=== PATIENT | male | born 1995 | race Caucasian/White ===

== ENCOUNTER 2017-07-27 09:50 | Emergency (ER) | payer OTHER, SELFPAY ==
[2017-07-27 09:51] VITALS: BP 140/90; PULSE 108; RESP 16; TEMP 36.2; O2SAT 96; BMI 19.6
--- NOTE | 2017-07-27 10:33 | ED.VISSUMM ---
- ER Visit Summary Date of Service: 07/27/17 Chief Complaint: Depressed History of Present Illness: The patient is a 21 M who states that he is depressed. This is been ongoing for the past month. He states at times he also feels anxious. He does not know why. He has not had suicidal thoughts. He feels restless when he tries to sleep at night. He has taken Benadryl to help with this. His mother is concerned about him. She hints that he may be using drugs but the patient denies any current use but states he does have a history. He admits to smoking tobacco. Physical Examination: Vital signs reviewed. HEENT exam unremarkable. Heart is regular rate and rhythm without murmurs. Lungs are clear to auscultation. Abdomen is soft and nontender. Extremities reveal no edema. Skin exam normal. Neurologic exam normal. Patient does have a flat affect and acts depressed. He smells of marijuana. Test Results: Laboratory studies are all normal. Tox screen shows opiates and cannabis Emergency Department Course and Treatment: Patient was evaluated by crisis. She feels the patient is not suicidal or homicidal and can be discharged. However, before this could happen the patient walked out. The mother was upset with this. She asked why we could not keep him here. I informed her that the patient does not require a pink slip as he is not suicidal or homicidal. And that I cannot hold him against his will. She states that he is going to go use drugs. I informed her that that is his well and the patient needs to want to be helped before we can help him. They will try to set him up an outpatient appointment with crisis Treatment Plan: [] Disposition: Discharge Impression: Depression, opiate abuse This note was generated with [employer] software. It may contain incorrect words, spelling, and punctuation that were not noted in review of the chart prior to signing ED Disposition - Plan for ED Patient: Chief Complaint: Mental Health Referrals: Donovan Poole MD [Primary Care Provider] -
[2017-07-27 10:38] LABS: Absolute Lymphocyte Count 1.31 X10^3/ul (0.83-4.51); Absolute Neutrophil Count 4.1 X10^3/uL (2.0-7.7); Basophil# 0.01 X10^3/uL; Basophil% 0.2 % (0-1); Eosinophil# 0.09 X10^3/uL; Eosinophils% 1.5 % (0-5); Hematocrit 42.3 % (40-54); Hemoglobin 14.6 g/dl (13.0-16.5); Lymphocyte # 1.31 X10^3/ul (4.0); Lymphocyte % 22.1 % (19-41); Mean Corp Hgb Conc 34.5 g/gl (32-36); Mean Corpuscular Hgb 31.7 pg (27.0-32.0); Mean Corpuscular Volume 91.8 fL (80-94); Mean Platelet Vol. 9.3 fl (6.2-12.0); Monocyte# 0.45 X10^3/uL; Monocyte% 7.6 % (0-10); Neutrophil # 4.05 X10^3/uL (2.7-7.7); Neutrophil % 68.4 % (47-70); Platelet Count 198 K/mm3 (150-450); RBC Distribution Width SD 43.2 fl (35.1-43.9); Red Blood Count 4.61 M/mm3 (4.6-6.2); White Blood Count 5.9 K/mm3 (4.4-11.0)
[2017-07-27 10:39] LABS: POSITIVE COUNT NO; POSITIVE DIFFERENTIAL NO; POSITIVE MORPHOLOGY NO
[2017-07-27 10:45] LABS: Anion Gap 5 (5-15); BUN 9 mg/dL (7-18); BUN/Creat Ratio 10.5 RATIO (10-20); Calcium,Total 9.1 mg/dL (8.5-10.1); Chloride 103 mmol/L (98-107); Creatinine, Serum 0.86 mg/dL (0.70-1.30); EST Glomerular Filtration Rate 119 mL/min (>60); Est Glom Filt Rate - Afr Amer 143 mL/min (>60); Glucose 79 mg/dL (74-106); Potassium 4.2 mmol/L (3.5-5.1); Sodium Level 138 mmol/L (136-145)
[2017-07-27 11:00] LABS: Alcohol, Blood (Medical)-Serum < 3.0 mg/dL
[2017-07-27 11:04] VITALS: BP 148/100; PULSE 117; RESP 24; O2SAT 99
[2017-07-27] MEDS: hydrOXYzine PAM 25 MG Capsule 50 MG PO (11:10)
[2017-07-27 11:42] LABS: Bacteria 0 SEEN /hpf (None Seen); Mucous, Urine 0 SEEN /hpf (<or=2+); Red Blood Cells-Urine 0 SEEN /hpf (0-5); White Blood Cells 0 SEEN /hpf (0-5)
[2017-07-27 11:45] LABS: Color, Urine Yellow (Yellow); Glucose, Dipstick Normal (Normal); Ketone-Dipstick Negative (Negative); Leukocyte Esterase-Dipstick Negative /ul (Negative); Nitrite-Dipstick Negative (Negative); Occult Blood-Urine Negative /ul (Negative); Protein-Dipstick Negative (Negative); Specific Gravity, Urine 1.015 (1.002-1.030); Urine Bilirubin Dipstick Negative (Negative); Urine Clarity Sl. Cloudy (Clear); Urine Urobilinogen Normal (Normal)
[2017-07-27 11:53] LABS: Squamous Epithelial Cells - UA 0-5 SEEN /hpf (0-5)
[2017-07-27 12:00] VITALS: BP 129/73; PULSE 96; RESP 16; O2SAT 96
[2017-07-27 12:00] LABS: Amphetamine Urine VISTA NEGATIVE (<1000 ng/mL); Barbiturate Urine VISTA NEGATIVE (< 200 ng/mL); Benzodiazepine Urine VISTA NEGATIVE (< 200 ng/mL); Cocaine Urine VISTA NEGATIVE (< 300 ng/mL); Ecstacy Urine VISTA NEGATIVE (< 500 ng/mL); Methadone Urine VISTA NEGATIVE (< 300 ng/mL); PCP Urine VISTA NEGATIVE (< 25 ng/mL); THC Urine VISTA POSITIVE (< 50 ng/mL); Vista UDS pH Range 8
--- NOTE | 2017-07-27 12:29 | PCA ---
[facility] CALLED BACK SHOULD BE HERE AROUND 1:30 OR SO
--- NOTE | 2017-07-27 13:11 | ED.RN ---
pt anxious in room, stating he wants his clothes and wants to leave. Spoke with Dr. Alonso- pt ok to have belongings- does not express SI. denies wanting lunch. Is aware that counselor is coming around 1300. pt is not pink slipped.
== END 2017-07-27 15:19 | disposition home or self-care (01) ==
PROVIDERS: Emergency Provider Emergency Medicine; Family Provider Family Medicine; PCP Family Medicine
DX: F32.9 Major depressive disorder, single episode, unspecified (principal); F11.10 Opioid abuse, uncomplicated; F17.200 Nicotine dependence, unspecified, uncomplicated
CPT/HCPCS: 36415; 80048; 80307; 80320; 81001; 85025; 99284; G0480

== ENCOUNTER 2020-02-23 19:16 | Emergency (ER) | payer OTHER, SELFPAY ==
[2020-02-23 19:27] VITALS: BP 140/75; PULSE 113; TEMP 36.7; O2SAT 99; BMI 19.8
[2020-02-23] MEDS: Ziprasidone IM 20 MG/ML VIAL IM (19:43)
[2020-02-23] MEDS: LORazepam 2 MG/ML Syringe IM (19:43)
[2020-02-23 20:02] LABS: Absolute Neutrophil Count 11.2 X10^3/uL (2.0-7.7); Basophil# 0.02 X10^3/uL; Basophil% 0.1 % (0-1); Hematocrit 42.8 % (40-54); Hemoglobin 14.5 g/dL (13.0-16.5); Lymphocyte % 12.9 % (19-41); Mean Corp Hgb Conc 33.9 g/dL (32-36); Mean Corpuscular Hgb 30.4 pg (27.0-32.0); Mean Corpuscular Volume 89.7 fL (80-94); Mean Platelet Vol. 9.3 fl (6.2-12.0); Monocyte# 0.88 X10^3/uL; Monocyte% 6.3 % (0-10); NRBC Flagged by Analyzer 0 % (0-5); Neutrophil # 11.24 X10^3/uL (2.7-7.7); Neutrophil % 80.3 % (47-70); Platelet Count 227 K/mm3 (150-450); RBC Distribution Width CV 13.2 % (11.6-14.6); RBC Distribution Width SD 43.6 fl (35.1-43.9); Red Blood Count 4.77 M/mm3 (4.6-6.2)
[2020-02-23 20:21] LABS: Anion Gap 7 (5-15); BUN 12 mg/dL (7-18); BUN/Creat Ratio 14.1 RATIO (10-20); Calcium,Total 9.6 mg/dL (8.5-10.1); Chloride 110 mmol/L (98-107); Creatinine, Serum 0.85 mg/dL (0.70-1.30); EST Glomerular Filtration Rate 117 mL/min (>60); Est Glom Filt Rate - Afr Amer 141 mL/min (>60); Estimated Creatinine Clearance 128.96 ml/min; Glucose 113 mg/dL (74-106); Potassium 3.6 mmol/L (3.5-5.1); Sodium Level 141 mmol/L (136-145)
[2020-02-23 20:22] LABS: Alcohol, Blood (Medical)-Serum < 3.0 mg/dL
[2020-02-23 20:28] LABS: Amphetamine Urine VISTA NEGATIVE (<1000 ng/mL); Barbiturate Urine VISTA NEGATIVE (< 200 ng/mL); Benzodiazepine Urine VISTA POSITIVE (< 200 ng/mL); Cocaine Urine VISTA NEGATIVE (< 300 ng/mL); Ecstacy Urine VISTA NEGATIVE (< 500 ng/mL); Methadone Urine VISTA NEGATIVE (< 300 ng/mL); PCP Urine VISTA NEGATIVE (< 25 ng/mL); THC Urine VISTA POSITIVE (< 50 ng/mL); Vista UDS pH Range 6
--- NOTE | 2020-02-23 20:30 | CM.ED ---
SOCIAL WORK Informant: Dr. Xiao Reason for Consult: Mental Health Evaluation Chief Compliant: Patient brought in by squad, [employer] Slipped by police. Officer reported patient with fentanyl use and suicidal ideations. Officer reported patient was in an altercation with sister who informed police patient had made threats of suicide and wanting to find a gun. Officer reports patient stated would be better off in the cemetery and asked if there are ways to kill yourself in penitentiary. Marital/Social History: Single Living Situation: Patient reports lives with parents Support/Resources: Family Employment History: Patient states works as a [employer] Mental Health Treatment/History: Patient denies any history of mental health. Substance Abuse History: Patient admits to use of fentanyl. Risk to Self/Others: Suicidal- Patient denies suicidal ideation, plan or intent. Attempted to discuss [employer] Slip and sister and officers concerns for suicidal threats made by patient. Patient stated You're pissing me off now. Homicidal- Patient denies any homicidal ideation Mental Status Exam: Orientation: A&Ox2 Memory: Impaired by substance abuse Appearance/General Behavior: disheveled, agitated Mood/Affect: elevated Communication Pattern: resistant to answering questions Thought Process: paranoid Judgment: poor Assessment: Met with patient in room. Introduced role and reason for referral. Patient being uncooperative with assessment at times. Patient continued to repeat I just want to go home. I just want to leave. Patient denies any suicidal or homicidal ideation. Patient under the influence of substances. Collaboration with Dr. Xiao. Patient to be observed and re-evaluated. Patient has been [employer] Slipped by police. Plan: Re-evaluation Xiomara Becerra MSW, [employer]
[2020-02-23 22:19] VITALS: RESP 16
--- NOTE | 2020-02-23 22:23 | ED.VIS.GEN ---
History of Present Illness Chief Complaint: Mental Health Informant: Patient Onset: Today Context: Gradual Onset Timing: Continuous Current Severity: Moderate Maximum Severity: Moderate Narrative: The patient is a 24-year-old male with medical history significant for fentanyl dependence that presents to the emergency department with police. With suicidal threats. The patient apparently had made some threats to his sister about wanting to end his life. He states that he has been under significant of stress because of work and home life. 1 of his siblings is recently moved away. He states he is also been mourning the of his friend who a few years ago. He denies any specific thoughts of self-harm, but had apparently told police that he was going to end up in the cemetery. The patient does not have a history of psychiatric disease per his report. Prior similar symptoms: No Recent Illness/Hospitalization: No Past Medical History - Allergies and Home Meds Allergies/Adverse Reactions: Allergies No Known Allergies Allergy (Verified 10/03/16 08:45) Primary Care Physician: Donovan Poole MD [Primary Care Provider] - Prior records reviewed: Yes Past Medical History: None Surgical History: noncontributory Smoking Status: Current every day smoker Review of Systems General: Denies: Chills, Fever, Sweats Eyes: Denies: Visual changes - bilaterally, Diplopia ENT: Denies: Rhinorrhea, Sore throat Cardiovascular: Denies: Chest pain, Palpitations Respiratory: Denies: Dyspnea, Cough, Dyspnea on exertion Gastrointestinal: Denies: Abdominal pain, Nausea, Vomiting, Diarrhea, Melena, Hematochezia Genitourinary: Denies: Dysuria, Hematuria, Frequency Musculoskeletal: Denies: Back pain, Extremity Pain Skin: Denies: Rash, Wounds Neurological: Denies: Headache, Weakness, Numbness Physical Exam Vital Signs/Narrative: Vital Signs Temp Pulse Resp BP Pulse Ox 02/23/20 22:19 16 02/23/20 19:27 98.0 F 113 H 140/75 H 99 Inital Vital Signs reviewed: Yes General: Well nourished, Well developed, No Acute Distress Head: Normocephalic, Atraumatic Eyes: Perrl, EOMI ENT: Moist mucous membranes, No rhinorrhea Neck: Supple, Nontender Cardiovascular: Regular rate, Regular rhythm, No murmurs Respiratory: No distress, CTA bilaterally, Chest nontender Abdomen: Soft, Nontender, Nondistended, Normal bowel sounds Back: Nontender, Normal Inspection Extremities: Nontender, No edema Skin: Normal color, No rash Neurological: Alert, Oriented x3, Cranial nerves II-XII grossly intact, Normal Strength, Normal Sensation Psychological: Agitated Diagnostic/Tx/Re-eval Abnormal Lab Results 02/23/20 02/23/20 02/23/20 19:26 19:45 19:45 WBC 14.0 H RBC 4.77 Hgb 14.5 Hct 42.8 MCV 89.7 MCH 30.4 MCHC 33.9 RDW Std Deviation 43.6 RDW Coeff of Darryl 13.2 Plt Count 227 MPV 9.3 Immature Gran % (Auto) 0.400 Neut % (Auto) 80.3 H Lymph % (Auto) 12.9 L Emanuel % (Auto) 6.3 Eos % (Auto) 0.0 Baso % (Auto) 0.1 Absolute Neuts (auto) 11.2 H Absolute Lymphs (auto) 1.80 Nucleated RBC % 0 Sodium 141 Potassium 3.6 Chloride 110 H Carbon Dioxide 24.0 Anion Gap 7 BUN 12 Creatinine 0.85 Estim Creat Clear Calc 128.96 Est GFR (MDRD) Af Amer 141 Est GFR (MDRD) Non-Af 117 BUN/Creatinine Ratio 14.1 Glucose 113 H Calcium 9.6 Urine Opiates Screen NEGATIVE Urine Methadone Screen NEGATIVE Ur Barbiturates Screen NEGATIVE Ur Phencyclidine Scrn NEGATIVE Ur Amphetamines Screen NEGATIVE U Methamphetamin-MDMA NEGATIVE U Benzodiazepines Scrn POSITIVE H Urine Cocaine Screen NEGATIVE U Cannabinoids Screen POSITIVE H Ur Drug Screen Comment Ethyl Alcohol 02/23/20 19:45 WBC RBC Hgb Hct MCV MCH MCHC RDW Std Deviation RDW Coeff of Darryl Plt Count MPV Immature Gran % (Auto) Neut % (Auto) Lymph % (Auto) Emanuel % (Auto) Eos % (Auto) Baso % (Auto) Absolute Neuts (auto) Absolute Lymphs (auto) Nucleated RBC % Sodium Potassium Chloride Carbon Dioxide Anion Gap BUN Creatinine Estim Creat Clear Calc Est GFR (MDRD) Af Amer Est GFR (MDRD) Non-Af BUN/Creatinine Ratio Glucose Calcium Urine Opiates Screen Urine Methadone Screen Ur Barbiturates Screen Ur Phencyclidine Scrn Ur Amphetamines Screen U Methamphetamin-MDMA U Benzodiazepines Scrn Urine Cocaine Screen U Cannabinoids Screen Ur Drug Screen Comment Ethyl Alcohol < 3.0 - Medical Decision Making The patient arrives with reported suicidality. He was verbally aggressive to myself and his staff. He was given Geodon and Ativan and was much more comfortable. Metabolic work-up was pursued. Lab work was unremarkable. The patient was seen in conjunction with social work. At this point, the patient will be observed until he demonstrates more clinical sobriety and be evaluated at that time to determine if he has true suicidal intent. Disposition is pending. Impression 1. Suicidal ideation ED Disposition - Plan for ED Patient: Referrals: Donovan Poole MD [Primary Care Provider] -
[2020-02-23 23:13] VITALS: RESP 16
[2020-02-23 23:57] VITALS: RESP 26
[2020-02-24 00:27] VITALS: BP 116/88; PULSE 84; RESP 16; O2SAT 96
[2020-02-24 01:32] VITALS: RESP 16
--- NOTE | 2020-02-24 01:59 | ED.DEP ---
ED Disposition - Plan for ED Patient: Disposition: Home or Assisted Living Diagnosis: Acute reaction to situational stress, Verbalizes suicidal thoughts Instructions: CONTRACT, No Harm, ED Depression Referrals: [facility] [STAFF PHYSICIAN] - As Needed [facility] [GROUP OF PHYSICIANS] - As Needed
== END 2020-02-24 02:20 | disposition home or self-care (01) ==
PROVIDERS: Emergency Provider Emergency Medicine; PCP Family Medicine
CPT/HCPCS: 80048; 80307; 80320; 85025; 96372; 99284; G0480; J3486

== ENCOUNTER 2022-12-25 14:45 | Emergency (ER) | payer SELFPAY ==
[2022-12-25 14:47] VITALS: BP 121/86; PULSE 108; RESP 18; TEMP 36.4; O2SAT 100; BMI 17.8
--- NOTE | 2022-12-25 15:14 | EX.ED.GENINJ ---
HPI History of Present Illness Chief Complaint: Bite Detail of Chief Complaint: Dog bite Informant: patient Narrative Narrative: Patient presents secondary to dog bite. He was try to break up a fight between his dog and a neighborhood dog. He was bit on both hands as well as on the left knee. He complains of pain primarily to the right thumb. He is unsure of his last tetanus update. PFSH PFSH Medical History no medical history no medical history Home Medications amoxicillin 875 mg-potassium clavulanate 125 mg tablet 1 tab PO BID #10 tabs 12/25/22 [Rx Last Taken Unknown] buprenorphine 8 mg-naloxone 2 mg sublingual film 1 film buccal Q24H 12/25/22 [History Last Taken Unknown] Allergy/AdvReac Type Severity Reaction Status Date / Time No Known Allergies Allergy Verified 12/25/22 14:47 Social History Smoking Status: Current every day smoker tobacco type: cigarettes ROS ROS ED Constitutional Constitutional ED: Denies chills or fever(s) Eyes Eyes: Denies change in vision ENT ENT ED: Denies rhinorrhea or sore throat Cardiovascular Cardiovascular: Denies chest pain or palpitations Respiratory/Chest Respiratory/Chest: Denies cough or dyspnea Gastrointestinal Gastrointestinal: Denies abdominal pain, nausea or vomiting Musculoskeletal Musculoskeletal: Reports extremity pain; Denies back pain Integumentary Reports Abrasions and other Details: Bite wounds and abrasions to the bilateral hands and left knee. ; Denies rash Neurologic Neurologic: Denies headache(s) or weakness Psychiatric Psychiatric: Denies anxiety or depression Allergic/Immunologic Allergic/Immunologic ED: Denies lip swelling or urticaria EXAM Physical Exam Const Vital Signs: 12/25/22 14:47 Temperature 97.6 F L Temperature Source Temporal Pulse Rate 108 H Respiratory Rate 18 Blood Pressure 121/86 H Blood Pressure Mean 97 Pulse Ox 100 Oxygen Delivery Method Room Air Positive well nourished and well developed General Appearance ED: well developed HEENT atraumatic Eyes PERRL and EOMs intact bilaterally Chest Wall inspection of chest normal and palpation of chest normal Resp normal respiratory effort and clear to auscultation bilaterally Cardio regular rhythm Rate: regular rate GI non-tender Palpation: soft Extremity Extremity Narrative: Right hand: Multiple superficial bite wounds to the digits. 3 deeper puncture wounds are noted at the base of the thumb. Good cap refill throughout. Slight decrease sensation throughout the thumb. Good range of motion of all digits. Left hand: Multiple superficial lacerations. Full range of motion of all digits with good cap refill and sensation throughout. Left lower extremity: Superficial linear abrasions over the anterior proximal left knee. Full range of motion of the joint without bony tenderness. Neuro oriented x3 and moves all extremities MDM MDM MDM Narrative Medical decision making narrative: X-rays of the hands are obtained to evaluate for any evidence of fracture or foreign body. Patient is given Naprosyn and Augmentin along with a tetanus update. Treatment and Re-Evaluation Narrative: Right hand x-rays per my interpretation reveal no evidence of acute fracture and no foreign body. Wounds were cleansed and dressed with antibiotic ointment and dressing. He will be given a 5-day course of Augmentin to prevent infection. Wound care was discussed. Discharge Plan Triage Chief Complaint: Bite ED Provider: Cady Song Dx/Rx/DC Orders Clinical Impression: Dog bite Instructions: ED Dog Bite Prescriptions: New amoxicillin-pot clavulanate 875-125 mg tablet 1 tab PO BID Qty: 10 0RF No Action buprenorphine-naloxone 8-2 mg film 1 film buccal Q24H Patient Comments: TAKE 1/2 FILM UNDER TONGUE TWICE A DAY FOR 28 DAYS Primary Care Provider: Donovan Poole Referrals: Donovan Poole MD [Primary Care Provider] - 1-2 Weeks Disposition Disposition: Home, Self Care
[2022-12-25] MEDS: Diphth,Pertuss(Acell),Tet Vac 0.5 ML Vial IM (15:57)
[2022-12-25] MEDS: Naproxen 500 MG Tablet PO (15:57)
[2022-12-25] MEDS: Amox/Clavulanate 875 MG Tablet PO (15:57)
--- NOTE | 2022-12-25 16:00 | RAD_ITS ---
INDICATION: injury EXAMINATION/TECHNIQUE: X-RAY - LEFT XR Hand Min 3 Views COMPARISON: None. FINDINGS: No acute fracture or malalignment. No blastic or lytic lesions. No degenerative changes are seen. The soft tissues are unremarkable. RAD/Hand Min 3 Views IMPRESSION: No acute radiographic abnormalities. Electronically Signed: Bishop Gardner MD at 16:21 EDT ,
--- NOTE | 2022-12-25 16:00 | RAD_ITS ---
INDICATION: pain EXAMINATION/TECHNIQUE: X-RAY - RIGHT XR Hand Min 3 Views COMPARISON: None. FINDINGS: No acute fracture or malalignment. No blastic or lytic lesions. No degenerative changes are seen. The soft tissues are unremarkable. RAD/Hand Min 3 Views IMPRESSION: No acute radiographic abnormalities. Electronically Signed: Bishop Gardner MD at 16:22 EDT ,
== END 2022-12-25 16:30 | disposition home or self-care (01) ==
PROVIDERS: Emergency Provider Emergency Medicine; PCP Family Medicine; Visit Provider Emergency Medicine
DX: S61.031A Puncture wound without foreign body of right thumb without damage to nail, initial encounter (principal); S60.511A Abrasion of right hand, initial encounter; S60.512A Abrasion of left hand, initial encounter; S80.212A Abrasion, left knee, initial encounter; W54.0XXA Bitten by dog, initial encounter; Y93.89 Activity, other specified; Y99.8 Other external cause status; F17.210 Nicotine dependence, cigarettes, uncomplicated; Z23 Encounter for immunization
CPT/HCPCS: 73130; 90471; 90715; 99283

== ENCOUNTER → 2025-01-03 | Outpatient (CLI) | payer SELFPAY | END | disposition home or self-care (01) | LOC: LAB 10:06 | PROVIDERS: PCP Family Medicine; Referring Provider Internal Medicine Pulmonary Disease; Visit Provider Internal Medicine Pulmonary Disease | DX: Z00.00 Encounter for general adult medical examination without abnormal findings (principal) ==